=== PATIENT | male | born 1990 | race Caucasian/White ===

== ENCOUNTER 2018-01-03 05:55 | Day surgery (SDC) | payer OTHER ==
[2018-01-03] MEDS ORDERED: PROVENTIL HFA 6.7GM INHALER (07:00)
[2018-01-03] MEDS ORDERED: LACTATED RINGER'S 1,000 ML IV (07:00)
[2018-01-03] MEDS ORDERED: LIDOCAINE 2% (SDV) 5 ML INJ (07:25)
[2018-01-03] MEDS ORDERED: SUCCINYLCHOLINE CHLORIDE 100 MG/5 ML SYG IV (07:25)
[2018-01-03] MEDS ORDERED: PROPOFOL 20 ML ×2 (07:25→08:21)
[2018-01-03] MEDS ORDERED: DEXAMETHASONE 4 MG/ML 1 ML INJ ×2 (07:26→07:44)
[2018-01-03] MEDS ORDERED: ONDANSETRON 4 MG INJ (07:26)
[2018-01-03] MEDS ORDERED: ACETAMINOPHEN 1000MG/100ML IV 100 ML (07:26)
[2018-01-03] MEDS ORDERED: FENTAnyl 50 MCG/ML VIAL ×2 (07:26→08:25)
[2018-01-03] MEDS ORDERED: MIDAZOLAM 1 MG/ML 2 ML INJ (07:26)
[2018-01-03 07:32] LABS: ADD UMIC YES; UR ASCORBIC ACID NEGATIVE (NEGATIVE); UR BILIRUBIN (Dip) NEGATIVE (NEGATIVE); UR BLOOD (Dip) 1+ mg/dL (NEGATIVE); UR CLARITY CLEAR (CLEAR); UR COLOR STRAW (YELLOW); UR GLUCOSE (Dip) NEGATIVE (NEGATIVE); UR KETONES (Dip) NEGATIVE (NEGATIVE); UR LEUKOCYTE ESTERASE (Dip) NEGATIVE Leu/ul (NEGATIVE); UR NITRITE (Dip) NEGATIVE (NEGATIVE); UR RBC 1 /HPF (0-5); UR SPECIFIC GRAVITY (Dip) 1.006 (1.003-1.030); UR TOTAL PROTEIN (Dip) NEGATIVE (NEGATIVE); UR UROBILINOGEN (Dip) NEGATIVE (NEGATIVE); UR WBC 2 /HPF (0-5)
[2018-01-03] MEDS ORDERED: CEFAZOLIN 1 GM INJ ×2 (07:32→07:41)
[2018-01-03] MEDS ORDERED: ONDANSETRON 4 MG INJ IV ×2 (08:00→09:00)
[2018-01-03] MEDS ORDERED: DIPHENHYDRAMINE 50 MG INJ IV (08:00)
[2018-01-03] MEDS ORDERED: ALBUTEROL 0.083% (NEB) 2.5 MG/3 ML AMP HHN (08:00)
[2018-01-03] MEDS ORDERED: FENTAnyl 50 MCG/ML VIAL IV (08:00)
[2018-01-03] MEDS ORDERED: METOCLOPRAMIDE 10 MG INJ IV (08:00)
[2018-01-03] MEDS: METHYLENE BLUE 1% 10 ML INJ (08:17)
[2018-01-03] MEDS ORDERED: FAMOTIDINE 20 MG INJ (08:22)
[2018-01-03] MEDS: BUPIVACAINE 0.25%/EPI (SDV) 30 ML INJ (08:24)
[2018-01-03] MEDS ORDERED: morphine 2 MG INJ IV (09:00)
[2018-01-03] MEDS ORDERED: OXYCODONE/ACETAMINOPHEN (5/325) TAB PO ×2 (09:00)
[2018-01-03] MEDS: MEPERIDINE 25 MG INJ IV (09:01)
[2018-01-03] MEDS: FENTAnyl 50 MCG/ML VIAL IV (09:19)
== END 2018-01-03 10:25 | disposition home or self-care (01) ==
LOC: SDS 05:55
DX: L05.91 Pilonidal cyst without abscess (principal); J45.909 Unspecified asthma, uncomplicated
CPT/HCPCS: 11772; 81001; 88304